=== PATIENT | male | born 2000 | race Caucasian/White ===

== ENCOUNTER 2023-03-11 18:45 | Emergency (ER) | payer OTHER, SELFPAY ==
[2023-03-11 18:52] VITALS: BP 134/88
[2023-03-11 19:19] LABS: Hematocrit 35.4 % (39.0-52.0); Hemoglobin 11.8 g/dL (13.0-18.0); Mean Corp Hgb Conc. 33.3 g/dL (33.0-37.0); Mean Corpuscular Hgb 26.3 pg (27.0-31.0); Mean Platelet Volume 9.4 fL (7.4-10.4); Platelet Count 346 10^3/uL (130-400); Red Blood Cell Count 4.48 10^6/uL (4.70-6.10); Red Cell Dist. Width 15.7 % (11.5-14.5); White Blood Cell Count 7.1 10^3/uL (4.8-10.8)
[2023-03-11 19:36] LABS: ALT (SGPT) 22 U/L (0-50); AST (SGOT) 26 U/L (17-59); Albumin 4.4 g/dl (3.5-5.0); Alkaline Phosphatase 47 U/L (38-126); Blood Urea Nitrogen 16 mg/dl (9-20); Calcium 9.2 mg/dl (8.4-10.2); Carbon Dioxide 27 mmol/L (22-30); Chloride 103 mmol/L (98-107); Glucose 85 mg/dl (70-99); Potassium 3.7 mmol/L (3.5-5.1); Sodium 136 mmol/L (135-145); Total Bilirubin 0.6 mg/dl (0.2-1.3); Total Protein 7.4 g/dl (6.3-8.2); eGFR > 60.00
[2023-03-11 21:21] VITALS: BMI 20.4
[2023-03-11] MEDS: TORADOL 30 MG IV (21:29)
[2023-03-11 21:49] LABS: D-Dimer < 0.27 ug/mlFEU (0.00-0.50)
[2023-03-11 22:10] LABS: Troponin I < 0.012 ng/ml
--- NOTE | 2023-03-11 23:13 | ED.GENMED ---
History of Present Illness
General
Chief Complaint: Medication Reaction
Source: patient
Exam Limitations: none
Time Seen by Provider: 03/11/23 19:53
Nursing documentation reviewed up to this point in time: agreed with
Travel History
Have you had any contact with someone who has COVID-19?: No
Do you have any symptoms of coronavirus? Fever > 100 degrees, chills, cough, shortness of breath, sore throat, loss of taste or smell, muscle aches, or headache?: No
History of Present Illness
History of Present Illness:
Patient to ED with complaint of left chest burning. States he has a history of ulcerative colitis. He was started on Rinvoq 20days ago. Since then he has developed acne to face, chest and back. Now with chest pain. Brought to ED by family for
salvador.
Past History
Past History
ED Past Medical History: Other (Ulcerative colitis)
ED Past Surgical History: Other (Centre teeth removal)
Social History
Tobacco: Vaping
Alcohol: Occasional
Drug: None
Personal: Single
Living: with family
Employment: Employed
Family History
Family History: Other (Noncontributory)
Review of Systems
Review of Systems
Allergies reviewed?: Yes
All Other Systems: ROS reviewed and negative except as documented in HPI and ROS
Constitutional: Reports no symptoms
EENT: Reports no symptoms
Respiratory: Reports no symptoms
Cardiac: Reports chest pain
ABD/GI: Reports no symptoms
Musculoskeletal: Reports no symptoms
Skin: Reports other (acne on face, chest and back)
Neurological: Reports no symptoms
Psychiatric: Reports no symptoms
Phy Exam
General Physical Exam
General Presentation: well appearing and no apparent distress
General age: appears stated age
General Skin: warm and dry
General Habitus: normal
General Mental: alert
General Hydration: appears well hydrated
ENT Exam
ENT Exam: pharynx normal, neck supple, swallowing well and other (no lesions on tongue or lorna=th)
Cardiovascular Exam
Cardiovascular Exam: regular rate/rhythm and no edema
Pulmonary Exam
Pulmonary Exam: lungs clear, no respiratory distress and chest non tender
Musculoskeletal Exam
Musculoskeletal Exam: full ROM and neuro vasc intact
Skin Exam
Skin Exam: normal color, warm/dry and no rash
Psychiatric Exam
Psychiatric Exam: normal mood/affect
Course
Orders/Labs/Results
Orders:
Orders
03/11/23 18:55
EKG- Treatment ONCE
03/11/23 19:11
CMP [Comprehensive Metabolic Panel] Urgent
Complete Blood Count/No Diff Urgent
03/11/23 20:19
Ketorolac [Toradol] 30 mg IV NOW STA
03/11/23 21:19
D-Dimer Urgent
Troponin I Urgent
03/11/23 22:12
CR Chest - 2 Views Urgent
Comment:
Reason For Exam: chest pain
Abnormal Lab Results
03/11/23
19:11
RBC 4.48 L 10^6/uL
(4.70-6.10)
Hgb 11.8 L g/dL
(13.0-18.0)
Hct 35.4 L %
(39.0-52.0)
MCV 79.0 L fL
(80.0-94.0)
MCH 26.3 L pg
(27.0-31.0)
RDW 15.7 H %
(11.5-14.5)
03/11/23 19:11
03/11/23 19:11
Vital Signs
Initial and Last Documented VS:
Initial Vital Signs
Temp Pulse Resp BP Pulse Ox
98 F 88 18 134/88 100
03/11/23 18:52 03/11/23 18:52 03/11/23 18:52 03/11/23 18:52 03/11/23 18:52
Last Documented Vital Signs
Temp Pulse Resp BP Pulse Ox
98 F 88 18 134/88 97
03/11/23 18:52 03/11/23 18:52 03/11/23 18:52 03/11/23 18:52 03/11/23 21:21
*Radiology
Radiology exam reviewed: radiology read reviewed
*Pulse Oximetry
Patient hypoxic: no
*EKG
Interpretation: normal
Rate: normal
Rhythm: sinus
*Critical Care Note
Total Time (30-74mins, 75-104mins- exclusive of procedures): Not Applicable
ED Attending Note
-
Portions of this chart may have been created with voice recognition software.� Occasional wrong word or��sound alike� substitutions may have occurred due to the inherent limitations of voice recognition software.
Discharge Plan
Departure
Patient Disposition: Home (Routine Discharge)
Date of Disposition: 03/11/23
Time of Disposition: 22:37
Patient with high blood pressure during this ER visit?: No
Condition: Good
Covid-19: Not Applicable
Discharge Problem:
Chest pain
Instructions: Chest Pain That Is Not Caused by the Heart (DC), Chest Pain PCP Follow Up
Prescriptions:
No Action
calcium carbonate-vitamin D3 [Oysco 500/D] 500 mg-5 mcg (200 unit) tablet
1 tab PO DAILY Qty: 60 0RF
infliximab [Remicade] 100 mg Recon Soln
100 mg IV Q8W
prednisone 10 mg Tablet
See Rx Instructions .ROUTE .COMPLEX Qty: 150 0RF
Rx Instructions:
60 mg daily x7 days, 50 mg daily x7 days, 40 mg daily x7 days, 30 mg daily x7 days, 20 mg daily x7 days, 10 mg daily x7 days
Referrals:
Solange Shrestha CRNP [Family Provider] - Tomorrow
Activity Restrictions/Additional Instructions:
Return to the emergency department immediately for any changes in/worsening of your symptoms.
Interventions
Interventions:
*Risk Screen - Suicide Last Done: 03/11/23 18:52
*General Assessment Last Done: 03/11/23 21:21
*Neglect/Abuse Screening Last Done: 03/11/23 18:52
ED- Fall Risk Assessment Last Done: 03/11/23 21:21
*ED COVID-19 Vaccine History Last Done: 03/11/23 21:21
*Nursing Disposition Last Done: 03/11/23 23:58
ED-Skin Assessment Last Done: 03/11/23 21:26
ED- Pulmonary Assessment Last Done: 03/11/23 21:21
ED-EENT Assessment Last Done: 03/11/23 21:26
Discharge Date and Time
Discharge Date/Time: 03/11/23 23:58
== END 2023-03-11 23:58 | disposition home or self-care (01) ==
LOC: EMR 18:45
PROVIDERS: Emergency Medicine; Nurse Practitioner; EMERGENCY PHYSICIAN Emergency Medicine; FAMILY PHYSICIAN Nurse Practitioner Family
DX: R07.9 Chest pain, unspecified (principal); F17.290 Nicotine dependence, other tobacco product, uncomplicated
CPT/HCPCS: 99284; 71046; 80053; 84484; 85027; 85379; 96374

== ENCOUNTER → 2023-07-17 15:51 | Outpatient (REF) | payer OTHER, SELFPAY | LOC: HWRAD 15:51 | PROVIDERS: ATTENDING PHYSICIAN Nurse Practitioner Family | DX: R51.9 Headache, unspecified (principal) | CPT/HCPCS: 70450 ==

== ENCOUNTER → 2024-01-26 06:25 | Day surgery (SDC) | payer OTHER, SELFPAY | LOC: GI 06:25 | PROVIDERS: ATTENDING PHYSICIAN Internal Medicine Gastroenterology | DX: K51.50 Left sided colitis without complications (principal); K64.0 First degree hemorrhoids | CPT/HCPCS: 45380; 88305 ==